=== PATIENT | female | born 1980 | race Caucasian/White ===

== ENCOUNTER 2018-05-05 14:24 | Outpatient (REF) | payer OTHER, SELFPAY ==
--- NOTE | 2018-05-05 13:00 | PAPFT_PTH ---
PATIENT: Kira Ellis LOC: [facility] U#:[id number] AGE/SX: 37/F ROOM: RE05/05/[address]: LORI More : 1980 BED: DIS: 05/05/2018 SPEC #: [id number] RECD: 05/05/18 18:05 STATUS: MONICA REQ #: [id number] RAMYA: 05/05/18 13:[address]: Nisa Hunt DEPT: [facility] Cytology RECD BY: Madison Booker ENTERED: 05/05/18 18:05 SP TYPE: PAPFT OTHR DR: Renetta Nunez APRN Tissues: 1 - CX/ENDOCX FOR PAP SMEARS Procedures: PAP THIN PREP/UVM Screening HPV DNA PROBE Comments: [id number]
== END 2018-05-05 14:44 ==
LOC: LBN 14:24
PROVIDERS: PCP Nurse Practitioner; Visit Provider Nurse Practitioner Family
DX: Z12.4 Encounter for screening for malignant neoplasm of cervix (principal); Z11.51 Encounter for screening for human papillomavirus (HPV)
CPT/HCPCS: 88142; 87624

== ENCOUNTER 2018-10-16 18:00 | Emergency (ER) | payer OTHER, SELFPAY ==
[2018-10-16 18:03] VITALS: BP 157/104; PULSE 117; RESP 16; TEMP 37.1; O2SAT 98
--- NOTE | 2018-10-16 18:13 | DI.RAD_ITS ---
SYMPTOM/DIAGNOSIS: TRAUMA, FOOT AND ANKLE PAIN LEFT ANKLE AND LEFT FOOT: There is a comminuted fracture involving the left calcaneus. There does not appear to be significant loss of volume of the fracture and no definite intra- articular extension is noted. No other fracture or dislocation of the left ankle or foot are noted. IMPRESSION: Comminuted, mildly impacted fracture involving the left calcaneus.
--- NOTE | 2018-10-16 18:14 | W.ED.GENAD ---
Discharge Plan Disposition Patient Disposition: HOME Condition: Stable Discharge Details Chief Complaint: Orthopedic Clinical Impression: Calcaneus fracture Primary Care Provider: Renetta Nunez ED Provider: Arely Pimentel Home Meds and New Rx's Prescriptions: No Action No Known Home Meds RF: 0 Discharge Instructions Instructions: Crutch Instructions (ED), Foot Fracture in Adults (ED), Splint Care (ED) Additional Instructions: Please return immediately to the emergency department if you develop any new or worsening symptoms or if you become otherwise concerned. It is extremely important that you make an appointment to be seen as soon as possible in follow-up for this visit by an orthopedic surgeon and also by your primary care doctor. Referrals: Anuel Weeks MD [[facility] STAFF PHYSICIAN] - Renetta Nunez NP [Primary Care Provider] - Medical Decision Making Kira Ellis is a 37 y/o woman without reported history of major medical problems who presented to the emergency department with right ankle pain and inability to bear weight after jumping off of a retaining wall and hearing a pop, no other reported pain or injuries. On exam patient has diffuse tenderness of the right ankle with a normal exam of the right lower leg. Foot distal to the injury is neurovascularly intact. Concern for fracture of the foot or ankle versus sprain. Exam/history is not consistent with DVT, compartment syndrome, vascular injury, Maisonneuve fracture. Plan for x-ray, ibuprofen. xray shows calcaneal fracture. I discussed the patient with Dr. Weeks of orthopedic surgery, who requested CT to help facilitate outpatient care and posterior splint, outpatient follow-up in a week or so. Patient is amenable to the plan. Splint placed. Post splint check shows normal sensation, brisk cap refill and exposed toes. Patient reports some pain in her ankle, denies any other complaint at this time. And a lengthy discussion with the patient regarding return to emergency department precautions, importance of outpatient follow-up, home care, splint care and use of crutches. Patient verbalized understanding of the plan and was amenable. Patient was discharged home with clear plan for outpatient follow-up. All questions were answered. Medical Records Medical records reviewed: Yes I reviewed the patient's medical records. Imaging Data Radiologic Study: Attestation: I personally reviewed and interpreted this imaging study as follows: Radiologist's impression: EXAM: XR Left Foot Complete EXAM DATE/TIME: 10/16/2018 18:31 CLINICAL HISTORY: 37 years old, female; Injury or trauma; Fall; Initial encounter; Blunt trauma; Ankle and foot; Patient HX: Trauma left foot pain; Per PT: Jumped off wall TECHNIQUE: Imaging protocol: XR Left foot. Views: 3 or more views. COMPARISON: No relevant prior studies available. FINDINGS: Bones/joints: Plantar calcaneal spur. Comminuted fracture of the calcaneus without significant depression. No definite intra-articular extension is identified radiographically. Soft tissues: Normal. IMPRESSION: Comminuted fracture of the calcaneus without significant depression. No definite intra-articular extension is identified radiographically. EXAM: XR Left Ankle EXAM DATE/TIME: 10/16/2018 18:31 CLINICAL HISTORY: 37 years old, female; Injury or trauma; Fall; Initial encounter; Blunt trauma; Patient HX: Trauma, left ankle pain; Per PT: Jumped off wall TECHNIQUE: Imaging protocol: XR Left ankle. Views: 3 or more views. COMPARISON: No relevant prior studies available. FINDINGS: Bones/joints: The ankle mortise is intact. Comminuted calcaneal fracture without definite intra-articular extension. There may be mild depression of the calcaneus anteriorly. Plantar calcaneal spur. Soft tissues: Lateral ankle soft tissue swelling. IMPRESSION: Comminuted calcaneal fracture without definite intra-articular extension. HPI General Mode of arrival: wheelchair. Date/Time Provider Initiated Documentation: 10/16/18 18:10. Limitations to Documentation: no limitations. Information obtained by: patient, family, RN notes reviewed and old records reviewed. HPI Narrative: Kira Ellis is a 37 y/o woman with a reported history of major medical problems presenting to the emergency department with ankle pain. Patient reports that just prior to arrival she jumped off a retaining wall and had sudden onset pain in her right ankle. She also felt a pop when she landed. She has been unable to bear weight on the right since the injury. She denies any other injury or pain, did not hit head, no loss of consciousness. She reports that she was previously in her usual state of health. She denies numbness or weakness, no skin wound. Related Data Home Medications Medication Instructions Recorded Confirmed Unknown [No Known Home Meds] 02/15/18 10/16/18 Allergies Allergy/AdvReac Type Severity Reaction Status Date / Time Sulfa (Sulfonamide Allergy Intermediate Hives Unverified 10/16/18 18:07 Antibiotics) General Stated Complaint: Orthopedic KAUSHAL: 4 Review of Systems Review of Systems Eyes: denies eye pain ENT: denies facial pain, dental pain, sore throat Cardiovascular: denies chest pain Respiratory: denies SOB, cough GI: denies abdominal pain : denies flank pain MSK: denies back pain, neck pain, myalgias, reports right ankle pain Skin: denies skin wound Neuro: denies headaches, numbness, weakness PFSH Medical History Elevated blood pressure reading in office with diagnosis of hypertension (Chronic) Family History Father Hyperlipidemia Hypertension Mother Osteoporosis Social History Smoking/Tobacco Use Status: Former Tobacco Use Alcohol Intake: current Alcohol Intake frequency: holidays/special occasions only Substance use type: does not use Adopted: No Foster care: No Household members: spouse and children Number of Children: 4 current occupation: day care provider Pets and animals: Yes What is your relationship status?: Panel score (0-1 are the most socially isolated patients): 1 Frequency: does not exercise Seatbelt use: always Helmet use: Yes Drive intox or ride w/intox passenger coach driver: No Working smoke detector in home: Yes Fire extinguisher in home: Yes Carbon monox detector in home: Yes Firearms in home: Yes Firearms unloaded and locked: Yes Additional Social history: pt is not alone to assess privately Female Reproductive History Menstrual control method: permanent sterilization History History 3 Para 4 Hx # Term Pregnancies Multiple births Hx # Pregnancies Ectopic pregnancies AB induced Hx Number of Living Children AB spontaneous Exam Narrative Exam Narrative: Constitutional: well and [id number], pleasant, conversing normally but appears uncomfortable HENT: head atraumatic/normocephalic/normal inspection, mucous membranes moist Eyes: conjunctiva normal, sclera normal, pupils 3mm b/l Neck: no stridor, normal ROM, trachea midline Resp: normal work of breathing Cardio: Tachycardic rate, normal rhythm Skin: warm, dry, normal color, no rash Neuro: alert, not altered, grossly non-focal, normal tone Ext: Right ankle diffusely tender to palpation without tenderness of the proximal tibia or fibula, no posterior calf tenderness, edema of the lateral right ankle without skin wound overlying skin changes, tenderness to palpation over the dorsal proximal foot, no heel tenderness palpation, patient cannot range ankle secondary to pain, ranging toes normally, brisk cap refill and normal sensation of the toes, DP pulses intact and symmetric Psych: normal mood, normal affect, normal behavior Course Vital Signs Temperature 37.1 C 10/16/18 18:03 Pulse 117 H 10/16/18 18:03 Respiratory Rate 16 10/16/18 18:03 Blood Pressure 157/104 H 10/16/18 18:03 Pulse Oximetry 98 10/16/18 18:03 Temperature 37.1 C 10/16/18 18:03 Temperature Source Skin 10/16/18 18:03 Pulse 117 H 10/16/18 18:03 Respiratory Rate 16 10/16/18 18:03 Respiratory Effort 10/16/18 18:05 Blood Pressure 157/104 H 10/16/18 18:03 Pulse Oximetry 98 10/16/18 18:03 Pain Level 10 10/16/18 18:10
[2018-10-16] MEDS: Ibuprofen 600 MG TAB PO (18:17)
--- NOTE | 2018-10-16 18:19 | ED.GENADUL_ITS ---
Discharge Plan Disposition Patient Disposition: HOME Condition: Stable Discharge Details Chief Complaint: Orthopedic Clinical Impression: Calcaneus fracture Primary Care Provider: Renetta Nunez ED Provider: Arely Pimentel Home Meds and New Rx's Prescriptions: No Action No Known Home Meds RF: 0 Discharge Instructions Instructions: Crutch Instructions (ED), Foot Fracture in Adults (ED), Splint Care (ED) Additional Instructions: Please return immediately to the emergency department if you develop any new or worsening symptoms or if you become otherwise concerned. It is extremely important that you make an appointment to be seen as soon as possible in follow- up for this visit by an orthopedic surgeon and also by your primary care doctor. Referrals: Anuel Weeks MD [[facility] STAFF PHYSICIAN] - Renetta Nunze NP [Primary Care Provider] - Medical Decision Making Kira Ellis is a 37 y/o woman without reported history of major medical problems who presented to the emergency department with right ankle pain and inability to bear weight after jumping off of a retaining wall and hearing a pop, no other reported pain or injuries. On exam patient has diffuse tenderness of the right ankle with a normal exam of the right lower leg. Foot distal to the injury is neurovascularly intact. Concern for fracture of the foot or ankle versus sprain. Exam/history is not consistent with DVT, compartment syndrome, vascular injury, Maisonneuve fracture. Plan for x-ray, ibuprofen. xray shows calcaneal fracture. I discussed the patient with Dr. Weeks of orthopedic surgery, who requested CT to help facilitate outpatient care and posterior splint, outpatient follow-up in a week or so. Patient is amenable to the plan. Splint placed. Post splint check shows normal sensation, brisk cap refill and exposed toes. Patient reports some pain in her ankle, denies any other complaint at this time. And a lengthy discussion with the patient regarding return to emergency department precautions, importance of outpatient follow-up, home care, splint care and use of crutches. Patient verbalized understanding of the plan and was amenable. Patient was discharged home with clear plan for outpatient follow-up. All questions were answered. Medical Records Medical records reviewed: Yes I reviewed the patient's medical records. Imaging Data Radiologic Study: Attestation: I personally reviewed and interpreted this imaging study as follows: Radiologist's impression: EXAM: XR Left Foot Complete EXAM DATE/TIME: 10/16/2018 18:31 CLINICAL HISTORY: 37 years old, female; Injury or trauma; Fall; Initial encounter; Blunt trauma; Ankle and foot; Patient HX: Trauma left foot pain; Per PT: Jumped off wall TECHNIQUE: Imaging protocol: XR Left foot. Views: 3 or more views. COMPARISON: No relevant prior studies available. FINDINGS: Bones/joints: Plantar calcaneal spur. Comminuted fracture of the calcaneus without significant depression. No definite intra-articular extension is identified radiographically. Soft tissues: Normal. IMPRESSION: Comminuted fracture of the calcaneus without significant depression. No definite intra-articular extension is identified radiographically. EXAM: XR Left Ankle EXAM DATE/TIME: 10/16/2018 18:31 CLINICAL HISTORY: 37 years old, female; Injury or trauma; Fall; Initial encounter; Blunt trauma; Patient HX: Trauma, left ankle pain; Per PT: Jumped off wall TECHNIQUE: Imaging protocol: XR Left ankle. Views: 3 or more views. COMPARISON: No relevant prior studies available. FINDINGS: Bones/joints: The ankle mortise is intact. Comminuted calcaneal fracture without definite intra-articular extension. There may be mild depression of the calcaneus anteriorly. Plantar calcaneal spur. Soft tissues: Lateral ankle soft tissue swelling. IMPRESSION: Comminuted calcaneal fracture without definite intra-articular extension. HPI General Mode of arrival: wheelchair . Date/Time Provider Initiated Documentation: 10/16/18 18:10 . Limitations to Documentation: no limitations . Information obtained by: patient, family, RN notes reviewed and old records reviewed . HPI Narrative: Kira Elils is a 37 y/o woman with a reported history of major medical problems presenting to the emergency department with ankle pain. Patient reports that just prior to arrival she jumped off a retaining wall and had sudden onset pain in her right ankle. She also felt a pop when she landed. She has been unable to bear weight on the right since the injury. She denies any other injury or pain, did not hit head, no loss of consciousness. She reports that she was previously in her usual state of health. She denies numbness or weakness, no skin wound. Related Data Home Medications Medication Instructions Recorded Confirmed Unknown [No Known Home Meds] 02/15/18 10/16/18 Allergies Allergy/AdvReac Type Severity Reaction Status Date / Time Sulfa (Sulfonamide Allergy Intermediate Hives Unverified 10/16/18 18:07 Antibiotics) General Stated Complaint: Orthopedic KAUSHAL: 4 Review of Systems Review of Systems Eyes: denies eye pain ENT: denies facial pain, dental pain, sore throat Cardiovascular: denies chest pain Respiratory: denies SOB, cough GI: denies abdominal pain : denies flank pain MSK: denies back pain, neck pain, myalgias, reports right ankle pain Skin: denies skin wound Neuro: denies headaches, numbness, weakness PFSH Medical History Elevated blood pressure reading in office with diagnosis of hypertension (Chronic) Family History Father Hyperlipidemia Hypertension Mother Osteoporosis Social History Smoking/Tobacco Use Status: Former Tobacco Use Alcohol Intake: current Alcohol Intake frequency: holidays/special occasions only Substance use type: does not use Adopted: No Foster care: No Household members: spouse and children Number of Children: 4 current occupation: day care provider Pets and animals: Yes What is your relationship status?: Panel score (0-1 are the most socially isolated patients): 1 Frequency: does not exercise Seatbelt use: always Helmet use: Yes Drive intox or ride w/intox city route driver: No Working smoke detector in home: Yes Fire extinguisher in home: Yes Carbon monox detector in home: Yes Firearms in home: Yes Firearms unloaded and locked: Yes Additional Social history: pt is not alone to assess privately Female Reproductive History Menstrual control method: permanent sterilization History History 3 Para 4 Hx # Term Pregnancies Multiple births Hx # Pregnancies Ectopic pregnancies AB induced Hx Number of Living Children AB spontaneous Exam Narrative Exam Narrative: Constitutional: well and [id number], pleasant, conversing normally but appears uncomfortable HENT: head atraumatic/normocephalic/normal inspection, mucous membranes moist Eyes: conjunctiva normal, sclera normal, pupils 3mm b/l Neck: no stridor, normal ROM, trachea midline Resp: normal work of breathing Cardio: Tachycardic rate, normal rhythm Skin: warm, dry, normal color, no rash Neuro: alert, not altered, grossly non-focal, normal tone Ext: Right ankle diffusely tender to palpation without tenderness of the proximal tibia or fibula, no posterior calf tenderness, edema of the lateral right ankle without skin wound overlying skin changes, tenderness to palpation over the dorsal proximal foot, no heel tenderness palpation, patient cannot range ankle secondary to pain, ranging toes normally, brisk cap refill and normal sensation of the toes, DP pulses intact and symmetric Psych: normal mood, normal affect, normal behavior Course Vital Signs Temperature 37.1 C 10/16/18 18:03 Pulse 117 H 10/16/18 18:03 Respiratory Rate 16 10/16/18 18:03 Blood Pressure 157/104 H 10/16/18 18:03 Pulse Oximetry 98 10/16/18 18:03 Temperature 37.1 C 10/16/18 18:03 Temperature Source Skin 10/16/18 18:03 Pulse 117 H 10/16/18 18:03 Respiratory Rate 16 10/16/18 18:03 Respiratory Effort 10/16/18 18:05 Blood Pressure 157/104 H 10/16/18 18:03 Pulse Oximetry 98 10/16/18 18:03 Pain Level 10 10/16/18 18:10
--- NOTE | 2018-10-16 19:04 | DI.VRAD_ITS ---
EXAM: XR Left Ankle EXAM DATE/TIME: 10/16/2018 18:31 CLINICAL HISTORY: 37 years old, female; Injury or trauma; Fall; Initial encounter; Blunt trauma; Patient HX: Trauma, left ankle pain; Per PT: Jumped off wall TECHNIQUE: Imaging protocol: XR Left ankle. Views: 3 or more views. COMPARISON: No relevant prior studies available. FINDINGS: Bones/joints: The ankle mortise is intact. Comminuted calcaneal fracture without definite intra-articular extension. There may be mild depression of the calcaneus anteriorly. Plantar calcaneal spur. Soft tissues: Lateral ankle soft tissue swelling. IMPRESSION: Comminuted calcaneal fracture without definite intra-articular extension. Dictated and Authenticated by: Yoko Bell MD. Ordering:ARACELI Mcgee MD
--- NOTE | 2018-10-16 19:04 | DI.VRAD_ITS ---
EXAM: XR Left Foot Complete EXAM DATE/TIME: 10/16/2018 18:31 CLINICAL HISTORY: 37 years old, female; Injury or trauma; Fall; Initial encounter; Blunt trauma; Ankle and foot; Patient HX: Trauma left foot pain; Per PT: Jumped off wall TECHNIQUE: Imaging protocol: XR Left foot. Views: 3 or more views. COMPARISON: No relevant prior studies available. FINDINGS: Bones/joints: Plantar calcaneal spur. Comminuted fracture of the calcaneus without significant depression. No definite intra-articular extension is identified radiographically. Soft tissues: Normal. IMPRESSION: Comminuted fracture of the calcaneus without significant depression. No definite intra-articular extension is identified radiographically. Dictated and Authenticated by: Yoko Bell MD. Ordering:ARACELI Mcgee MD
[2018-10-16 19:15] VITALS: BP 123/77; PULSE 79; RESP 18; TEMP 37; O2SAT 99
--- NOTE | 2018-10-16 19:50 | DI.CT_ITS ---
SYMPTOM/DIAGNOSIS: CALCANEAL FRACTURE LEFT FOOT CT: Multiple contiguous axial images of the left foot were obtained. There is a markedly comminuted fracture involving the calcaneus. There is impaction of the fracture, particularly laterally. The calcaneal cuboid joint appears well maintained. There is extension of the fracture into the sinus tarsi. There does appear to be involvement of its articulation with the talus medially and anteriorly. There is some depression of the fracture with mild loss of the normal calcaneal angle. There is soft tissue swelling present. No other fracture or dislocation is seen. IMPRESSION: Acute, intra-articular comminuted fracture of the calcaneus.
--- NOTE | 2018-10-16 20:10 | DI.VRAD_ITS ---
EXAM: CT Left Lower Extremity With Contrast, Foot EXAM DATE/TIME: 10/16/2018 19:24 CLINICAL HISTORY: 37 years old, female; Injury or trauma; Injury history: Jumped of a wall; Initial encounter; Blunt trauma; Heel and foot; Left; Injury date: 10/16/18; Injury details: Calcaneal FX TECHNIQUE: Imaging protocol: CT of the Left lower extremity with intravenous contrast was performed. Exam focused on the foot. Radiation optimization: All CT scans at this facility use at least one of these dose optimization techniques: automated exposure control; mA and/or kV adjustment per patient size (includes targeted exams where dose is matched to clinical indication); or iterative reconstruction. COMPARISON: CR XR foot LT complete 10/16/2018 18:34 FINDINGS: Bones/joints: The distal tibia and fibula are intact. The talus and talar dome are intact. The bones of the midfoot are intact. The metatarsals are intact. No displaced phalangeal fractures. Acute comminuted fracture of the calcaneus. There is mild involvement of the medial aspect of the talocalcaneal joint medially and posteriorly, as well as extension into the sinus tarsi. There is slight depression of the calcaneus although the anterior talocalcaneal facet appears relatively preserved. The calcaneocuboid joint is intact. The ankle mortise is intact. No dislocation. Soft tissues: Generalized soft tissue swelling about the ankle.. IMPRESSION: Acute, intra-articular comminuted fracture of the calcaneus. Dictated and Authenticated by: Yoko Bell MD. Ordering:ARACELI Mcgee MD
== END 2018-10-16 21:10 | disposition home or self-care (01) ==
PROVIDERS: Emergency Provider Student in an Organized Health Care Education/Training Program; PCP Nurse Practitioner
DX: S92.011A Displaced fracture of body of right calcaneus, initial encounter for closed fracture (principal); W17.89XA Other fall from one level to another, initial encounter
CPT/HCPCS: 29515; 99284; 73610; 73630; 73700; E0114

== ENCOUNTER → 2018-10-18 14:51 | Outpatient (BNVA) | payer OTHER, SELFPAY | PROVIDERS: PCP Nurse Practitioner; Referring Provider Nurse Practitioner; Visit Provider Student in an Organized Health Care Education/Training Program | DX: S92.002A Unspecified fracture of left calcaneus, initial encounter for closed fracture (principal); W17.89XA Other fall from one level to another, initial encounter | CPT/HCPCS: 99202; 99213 ==

== ENCOUNTER 2018-11-01 10:17 | Outpatient (CLI) | payer OTHER, SELFPAY ==
--- NOTE | 2018-11-01 09:22 | DI.RAD_ITS ---
SYMPTOMS/DIAGNOSIS: F/U CALCANEAL FRACTURE LEFT CALCANEUS: Two views. Comparison is 10/16/18. There is no change in alignment of the comminuted fracture involving the left calcaneus.
== END 2018-11-01 10:37 ==
PROVIDERS: PCP Nurse Practitioner; Visit Provider Student in an Organized Health Care Education/Training Program
DX: S92.002A Unspecified fracture of left calcaneus, initial encounter for closed fracture (principal); X58.XXXA Exposure to other specified factors, initial encounter
CPT/HCPCS: 99213; L4361; 73650

== ENCOUNTER 2018-11-29 14:56 | Outpatient (CLI) | payer OTHER, SELFPAY ==
--- NOTE | 2018-11-29 11:05 | DI.RAD_ITS ---
SYMPTOMS/DIAGNOSIS: F/U CALCANEAL FRACTURE LEFT HEEL: Two views were obtained and show healing calcaneal fracture with no gross interval change in alignment in comparison with examination of November 01.
== END 2018-11-29 15:16 ==
PROVIDERS: PCP Nurse Practitioner; Referring Provider Nurse Practitioner; Visit Provider Student in an Organized Health Care Education/Training Program
DX: S92.022A Displaced fracture of anterior process of left calcaneus, initial encounter for closed fracture (principal); X58.XXXA Exposure to other specified factors, initial encounter
CPT/HCPCS: 99213; 73650

== ENCOUNTER 2018-12-27 10:45 | Outpatient (CLI) | payer OTHER, SELFPAY ==
--- NOTE | 2018-12-27 10:34 | DI.RAD_ITS ---
SYMPTOM/DIAGNOSIS: F/U FX LEFT CALCANEUS: Comparison is made with 11/29/18. There has been continued healing of the calcaneal fracture. No new abnormalities are seen.
== END 2018-12-27 11:05 ==
PROVIDERS: PCP Nurse Practitioner; Referring Provider Nurse Practitioner; Visit Provider Student in an Organized Health Care Education/Training Program
DX: S92.022A Displaced fracture of anterior process of left calcaneus, initial encounter for closed fracture (principal); X58.XXXA Exposure to other specified factors, initial encounter
CPT/HCPCS: 99213; 73650

== ENCOUNTER 2019-02-02 09:31 | Outpatient (CLI) | payer OTHER, SELFPAY ==
--- NOTE | 2019-02-02 09:28 | DI.RAD_ITS ---
SYMPTOM/DIAGNOSIS: F/U FRACTURE LEFT CALCANEUS: Comparison is made with 27 December 2018. There has been continued healing of the previously noted calcaneal fracture. No new abnormalities are seen.
== END 2019-02-02 09:51 ==
PROVIDERS: PCP Nurse Practitioner; Visit Provider Student in an Organized Health Care Education/Training Program
DX: S92.022D Displaced fracture of anterior process of left calcaneus, subsequent encounter for fracture with routine healing (principal); X58.XXXD Exposure to other specified factors, subsequent encounter
CPT/HCPCS: 99213; 73650

== ENCOUNTER 2020-04-11 15:45 | Outpatient (CLI) | payer OTHER, SELFPAY ==
[2020-04-11 16:38] LABS: Bilirubin Negative (Negative); Blood Small (Negative); Clarity Sl Cloudy (Clear); Glucose Negative (Negative); Ketones Negative (Negative); Leukocyte Esterase Negative (Negative); Nitrite Negative (Negative); Specific Gravity 1.025 (1.005-1.025); Urobilinogen 0.2 EU/dL (Up TO 0.2)
[2020-04-11 16:57] LABS: Bacteria Few HPF (Negative); C & S Indicated? C&S Done As Ordered; Crystals Few Amorphous HPF (Negative); Epithelial Cells Few HPF (Negative); Mucus Negative (Negative); RBC 20-50 HPF (0-2); WBC 0-2 HPF (0-5)
== END 2020-04-11 16:05 ==
PROVIDERS: Nurse Practitioner Adult Health; PCP Nurse Practitioner; Visit Provider Student in an Organized Health Care Education/Training Program
DX: R30.0 Dysuria (principal)
CPT/HCPCS: 87077; 81003; 81015; 87086; 87186

== ENCOUNTER 2021-01-16 01:28 | Outpatient (CLI) | payer OTHER, SELFPAY ==
[2021-01-16 08:15] LABS: HGB 13.7 g/dL (11.2-15.7); MCH 30.9 pg (27.0-33.0); MCHC 33.4 % (32.0-36.0); MCV 92.6 fL (80-95); MPV 9.9 fL (8.0-11.0); Platelet Count 213 10^3/uL (130-400); RBC 4.43 10^6/uL (3.93-5.22); RDW 12.5 % (11.7-14.6); RDW-SD 42.8 fL; WBC 5.56 10^3/uL (4.4-10.8)
[2021-01-16 09:18] LABS: ALT 42 U/L (14-59); AST 17 U/L (15-37); Alkaline Phosphatase 36 U/L (46-116); Anion Gap 10.3 mmol/L (3-11); BUN 15 mg/dL (7-18); Bilirubin, Total 0.4 mg/dL (0.2-1.0); CO2 27.7 mmol/L (21.0-32.0); CREATININE 0.7 mg/dL (0.55-1.02); Calcium 8.9 mg/dL (8.5-10.1); Calculated LDL 83 mg/dL (<100); Chloride 104 mmol/L (98-107); Cholesterol 158 mg/dL (<200); Glucose 108 mg/dL (74-106); HDL Cholesterol 54 mg/dL (40-60); Potassium 4.6 mmol/L (3.5-5.1); Sodium 142 mmol/L (136-145); TSH (W/Ref FT4) 0.71 uIU/mL (0.36-3.74); Triglyceride 108 mg/dL (<150)
== END 2021-01-16 01:29 | disposition home or self-care (01) ==
LOC: LBO 01:33
PROVIDERS: PCP Nurse Practitioner; Visit Provider Nurse Practitioner
DX: Z13.220 Encounter for screening for lipoid disorders (principal); R53.83 Other fatigue
CPT/HCPCS: 36415; 80053; 80061; 85027; 84443

== ENCOUNTER 2021-01-16 02:49 | Outpatient (CLI) | payer OTHER, SELFPAY ==
--- NOTE | 2021-01-16 06:45 | DI.MAMMO_ITS ---
Exam(s) MAMMO SCREENING EXAM: MAMMO SCREENING CLINICAL HISTORY: screening, Z12.39 TECHNIQUE: Mammograms were interpreted according to the usual protocol including computer analysis w [employer] CAD system, tomosynthesis and C-view imaging. COMPARISON: FINDINGS: The breasts are heterogeneously dense. No dominant mass or clumped microcalcification is identified in either breast. Today's examination is a baseline examination. IMPRESSION: No specific evidence of malignancy at this time. Routine screening examinations are suggested at yea rly intervals according to the ACR guidelines. BI-RADS Category 1 - Negative Breast Density - Category C - Heterogeneously dense
== END 2021-01-16 03:09 ==
PROVIDERS: PCP Nurse Practitioner; Visit Provider Nurse Practitioner
DX: Z12.31 Encounter for screening mammogram for malignant neoplasm of breast (principal); R92.2 Inconclusive mammogram
CPT/HCPCS: 77063; 77067

== ENCOUNTER 2024-08-30 02:25 | Outpatient (CLI) | payer OTHER, SELFPAY ==
[2024-08-30 08:44] LABS: COMMENT (LAB VIEW ONLY) 168.31 mg/dL; Microalb ug/mg Crea 6.2 ug/mg Cr
[2024-08-30 08:55] LABS: ALT 64 U/L (14-59); AST 23 U/L (15-37); Albumin 4.6 g/dL (3.4-5.0); Alkaline Phosphatase 48 U/L (46-116); Anion Gap 10.9 mmol/L (3-11); BUN 20 mg/dL (7-18); Bilirubin, Total 0.5 mg/dL (0.2-1.0); CO2 29.1 mmol/L (21.0-32.0); CREATININE 0.9 mg/dL (0.55-1.02); Calcium 9.4 mg/dL (8.5-10.1); Calculated LDL 138 mg/dL (<100); Chloride 102 mmol/L (98-107); Cholesterol 229 mg/dL (<200); Estimated GFR 81.35 (mL/min/1.73m2); Glucose 104 mg/dL (74-106); HDL Cholesterol 68 mg/dL (>or=50); Potassium 4.1 mmol/L (3.5-5.1); Sodium 142 mmol/L (136-145); TSH 0.73 uIU/mL (0.36-3.74); Total Protein 8.3 g/dL (6.4-8.2); Triglyceride 119 mg/dL (<150)
== END 2024-08-30 02:26 | disposition home or self-care (01) ==
LOC: LBO 02:25
PROVIDERS: PCP Nurse Practitioner; Visit Provider Nurse Practitioner Family
DX: Z13.220 Encounter for screening for lipoid disorders (principal); I10 Essential (primary) hypertension; R53.83 Other fatigue
CPT/HCPCS: 36415; 80053; 80061; 82043; 82570; 84443

== ENCOUNTER 2024-09-06 09:54 | Outpatient (CLI) | payer OTHER, SELFPAY ==
[2024-09-06 18:32] LABS: FSH 91.4 mIU/mL (See Note)
== END 2024-09-06 09:55 | disposition home or self-care (01) ==
LOC: LBO 09:55
PROVIDERS: PCP Nurse Practitioner; Visit Provider Obstetrics & Gynecology
DX: R23.2 Flushing (principal)
CPT/HCPCS: 36415; 83001

== ENCOUNTER 2024-09-06 10:09 | Outpatient (REF) | payer OTHER, SELFPAY ==
--- NOTE | 2024-09-06 09:30 | PAPFT_PTH ---
PATIENT: Kira Ellis LOC: [facility] U#:[id number] AGE/SX: 43/F ROOM: RE09/06/[address]: Racheal Mason DO : 1980 BED: DIS: 09/06/2024 SPEC #: [id number] RECD: 09/06/24 13:01 STATUS: MONICA RERowan #: [id number] RAMYA: 09/06/24 09:[address]: Racheal Mason DEPT: [facility] Cytology RECD BY: Madison Booker ENTERED: 09/06/24 13:01 SP TYPE: PAPFT OTHR DR: Renetta Nunez APRN Tissues: 1 - CX/ENDOCX FOR PAP SMEARS Procedures: PAP THIN PREP/UVM Screening HPV DNA PROBE Comments: [id number] (HPV 16 & 18/45)
== END 2024-09-06 10:10 | disposition home or self-care (01) ==
LOC: LBN 10:09
PROVIDERS: PCP Nurse Practitioner; Visit Provider Obstetrics & Gynecology
DX: Z12.4 Encounter for screening for malignant neoplasm of cervix (principal)
CPT/HCPCS: 88142; 87624

== ENCOUNTER 2024-10-12 01:03 | Outpatient (CLI) | payer OTHER, SELFPAY ==
--- NOTE | 2024-10-12 08:30 | DI.MAMMO_ITS ---
Exam(s) MAMMO SCREENING EXAM: MAMMO SCREENING CLINICAL HISTORY: screening,Z12.39 TECHNIQUE: Mammograms were interpreted according to the usual protocol including computer analysis w [employer] CAD system, tomosynthesis and C-view imaging. COMPARISON: [facility] MAMMO SCREENING from 01/16/2021 FINDINGS: The breasts are composed of scattered fibroglandular densities, Breast Density category B. No suspicious masses or suspicious microcalcifications are seen. No skin thickening or abnormal axillary lymph nodes are seen. There has been no significant change from prior exams. IMPRESSION: BI-RADS Category 1, Negative mammogram Yearly screening mammography is recommended. Breast Density - Category B, scattered fibroglandular densities. Breast density Category C or D implies that the patient has dense breast tissue. Dense breast tissue can make it harder to find cancer on a mammogram. Dense breast tissue is also associated with an incr eased risk of breast cancer. This information about the result of the mammogram report was provided to the patient to raise their awareness. Use this report when you speak with the patient about their risks for breast cancer, which includes their family history. At that time, you may recommend additional screening tests (Ultrasoun d or MRI) as these tests may add significant information. A negative radiographic report should not delay biopsy if a dominant or clinically suspicious mass is present. Up to ten percent of cancers are not identified on mammography. A negative report may reinforce clinical impression. Adenosis and dense breasts may obscure an underlying neoplasm. False positive reports average 6 to 10%. Patient will receive a letter notifying them of these results.
== END 2024-10-12 01:23 ==
LOC: DI 01:03
PROVIDERS: PCP Nurse Practitioner; Visit Provider Obstetrics & Gynecology
DX: Z12.31 Encounter for screening mammogram for malignant neoplasm of breast (principal); R92.323 Mammographic fibroglandular density, bilateral breasts
CPT/HCPCS: 77063; 77067

== ENCOUNTER 2024-10-12 16:07 | Outpatient (CLI) | payer OTHER, SELFPAY ==
--- NOTE | 2024-10-12 16:00 | RT.EKG_ITS ---
APPROVED REPORT Exam: Resting ECG Reason for Exam: High blood pressure Patient Location: O HR:70 bpm ECG Measurements Heart Rate 70 AXIS WV 142 P 42 QRSd 94 QRS 15 QT 382 T 14 QTc 413 Conclusion Sinus rhythm...normal P axis, V-rate 50- 99 Low voltage, precordial leads...precordial leads <1.0mV Baseline wander in lead(s) V1,V2,V3,V4,V5,V6 Otherwise normal ECG
== END 2024-10-12 16:08 | disposition home or self-care (01) ==
LOC: DI.KIM 16:08
PROVIDERS: PCP Nurse Practitioner; Visit Provider Nurse Practitioner Family
DX: I10 Essential (primary) hypertension (principal)
CPT/HCPCS: 93010

== ENCOUNTER 2024-10-17 02:20 | Outpatient (CLI) | payer OTHER, SELFPAY ==
[2024-10-17 13:57] LABS: Anion Gap 8.6 mmol/L (3-11); BUN 18 mg/dL (7-18); CO2 29.4 mmol/L (21.0-32.0); CREATININE 0.8 mg/dL (0.55-1.02); Calcium 9.5 mg/dL (8.5-10.1); Chloride 103 mmol/L (98-107); Glucose 99 mg/dL (74-106); Potassium 4.2 mmol/L (3.5-5.1); Sodium 141 mmol/L (136-145)
== END 2024-10-17 02:21 | disposition home or self-care (01) ==
LOC: LBO 02:21
PROVIDERS: PCP Nurse Practitioner Family; Visit Provider Nurse Practitioner Family
DX: I10 Essential (primary) hypertension (principal)
CPT/HCPCS: 36415; 80048

== ENCOUNTER 2025-04-20 11:22 | Outpatient (REF) | payer OTHER, SELFPAY ==
[2025-04-20 15:43] LABS: Glucose Negative (Negative)
[2025-04-20 15:50] LABS: RBC 0-2 HPF (0-2); WBC 20-50 HPF (0-5)
[2025-04-20 15:51] LABS: C & S Indicated? Yes
== END 2025-04-20 11:23 | disposition home or self-care (01) ==
LOC: LBN 11:22
PROVIDERS: PCP Nurse Practitioner Family; Visit Provider Physician Assistant
DX: R30.0 Dysuria (principal)
CPT/HCPCS: 87077; 81003; 81015; 87086; 87186